=== PATIENT | male | born 1955 | race African-American/Black ===

== ENCOUNTER 2022-06-27 04:03 | Day surgery (SDC) | payer BC ==
[2022-06-25 17:21] VITALS: BMI 32.1
[2022-06-27] MEDS ORDERED: ACETAMINOPHEN 325 MG TABLET (FP) PO PRN (07:06)
[2022-06-27] MEDS ORDERED: oxyCODONE HCL 5 MG TABLET PO PRN ×2 (07:06)
[2022-06-27] MEDS ORDERED: LACTATED RINGERS SOLUTION 1,000 ML IV SCH (07:15)
[2022-06-27] MEDS ORDERED: PROPOFOL 40 ML ONE (07:17)
[2022-06-27] MEDS ORDERED: ONDANSETRON 4 MG/2 ML VIAL ONE (07:17)
[2022-06-27] MEDS ORDERED: MIDAZOLAM HCL 2 MG/2 ML SINGLE DOSE VIAL ONE (07:17)
[2022-06-27] MEDS ORDERED: BUPIVACAINE HCL/PF 0.5% (5MG/ML) 10 ML VIAL ONE (07:22)
[2022-06-27] MEDS ORDERED: LIDOCAINE 1%/EPI 1:100000 (20 ML MULTI DOSE VIAL) ONE (07:22)
[2022-06-27] MEDS ORDERED: ceFAZolin SODIUM 1 GM VIAL ONE ×2 (08:20)
[2022-06-27] MEDS ORDERED: ceFAZolin SODIUM 1 GM VIAL IVPB ONE (08:23)
[2022-06-27] MEDS ORDERED: LIDOCAINE 1%/EPI 1:100000 (20 ML MULTI DOSE VIAL) IJ ONE (08:34)
[2022-06-27] MEDS ORDERED: BUPIVACAINE HCL/PF 0.5% (5MG/ML) 10 ML VIAL IJ ONE ×2 (08:36)
[2022-06-27] MEDS ORDERED: PROPOFOL 20 ML ONE (08:40)
[2022-06-27 11:57] VITALS: BP 136/68; PULSE 79; RESP 20; TEMP 98.7
== END 2022-06-27 11:30 | disposition home or self-care (01) ==
LOC: JASU-SURG 04:03
PROVIDERS: ATTEND Orthopaedic Surgery
PROC: 0SBC4ZZ Excision of Right Knee Joint, Percutaneous Endoscopic Approach (ICD-10-PCS; 2022-06-27)
PROC: 0SBC4ZZ Excision of Right Knee Joint, Percutaneous Endoscopic Approach (ICD-10-PCS; principal; 2022-06-27 08:00)
DX: M23.321 Other meniscus derangements, posterior horn of medial meniscus, right knee (principal); M23.361 Other meniscus derangements, other lateral meniscus, right knee
CPT/HCPCS: 82962; 94760